=== PATIENT | female | born 1985 | race Caucasian/White ===

== ENCOUNTER 2018-02-26 17:12 | Inpatient (IN) ==
[2018-02-26] MEDS ORDERED: ONDANSETRON 4 MG/2 ML VIAL IV PRN (17:40)
[2018-02-26] MEDS ORDERED: BUTORPHANOL 2 MG/ML VIAL IV PRN (17:40)
[2018-02-26] MEDS ORDERED: MEPERIDINE 50 MG/1 ML VIAL IM PRN (17:40)
[2018-02-26] MEDS ORDERED: OXYTOCIN/LR 20 UNIT/1,000 ML BAG IV SCH (18:00)
[2018-02-26 18:22] LABS: Basophils % 0.2 % (0.0-0.8); Eosinophils % 0.1 % (0.00-10.9); Hematocrit 36.4 VOL% (35.7-47.0); Hemoglobin 11.8 GM/DL (12.0-16.0); Immature Granulocytes % 0.9 %; Lymphocytes # 1.7 10*3/uL (1.4-4.0); Lymphocytes % 7.4 % (21.3-54.2); Mean Corpuscular HGB Conc 32.4 GM/DL (32-36); Mean Corpuscular Hemoglobin 28 PG (27-34); Mean Corpuscular Volume 85.2 FL (87-102); Mean Platelet Volume 10.3 FL (9.6-12.0); Monocytes # 1.3 10*3/uL (0.11-0.8); Monocytes % 5.6 % (1.7-12.7); Neutrophils # 19.6 10*3/uL (1.4-7.4); Neutrophils % 85.8 % (38.7-73.9); Platelet Count 318 T/CUMM (130-400); Red Blood Count 4.27 MC/CUMM (3.8-5.5); Red Cell Distribution Width 14.1 % (9.3-17.3); White Blood Count 22.8 T/CUMM (4-12)
[2018-02-26 19:11] LABS: Lymphocytes 6 % (20-55); Platelet Estimate Normal; Polychromasia Slight; Segmented Neutrophils 86 % (50-85); Total Cells Counted 100
[2018-02-26] MEDS ORDERED: LIDOCAINE 1% 50 ML VIAL ONE (19:39)
[2018-02-26] MEDS ORDERED: miSOPROStol 200 MCG TABLET ONE (19:39)
[2018-02-26] MEDS ORDERED: METHYLERGONOVINE 0.2 MG/1 ML AMP ONE (19:41)
[2018-02-27] MEDS ORDERED: IBUPROFEN 800 MG TABLET PO PRN (00:09)
[2018-02-27] MEDS ORDERED: BISACODYL 10 MG SUPP RECTAL PRN (00:09)
[2018-02-27] MEDS ORDERED: MEASLES/MUMPS/RUBELLA VACCINE 0.5 ML VIAL SUBCUT ONE (00:09)
[2018-02-27] MEDS ORDERED: WITCH HAZEL PADS 100/JAR TOP PRN (00:09)
[2018-02-27] MEDS ORDERED: DIPH/TET/ACEL PERT BOOSTER VACCINE 0.5 ML VIAL IM ONE (00:09)
[2018-02-27] MEDS ORDERED: ACETAMINOPHEN 325 MG TABLET PO PRN (00:09)
[2018-02-27] MEDS ORDERED: oxyCODONE/ACETAMINOPHEN 5-325 MG TABLET PO PRN ×2 (00:09)
[2018-02-27] MEDS ORDERED: RHO(D) IMMUNE GLOBULIN 300 MCG SYRINGE IM ONE (00:09)
[2018-02-27] MEDS ORDERED: BENZOCAINE 20%/MENTHOL 0.5% SPRAY 56 GM CAN TOP PRN (00:09)
[2018-02-27] MEDS ORDERED: HYDROCORTISONE 2.5% RECTAL CREAM 30 GM TUBE TOP PRN (00:09)
[2018-02-27] MEDS ORDERED: LANOLIN 50% CREAM 0.3 OZ TUBE TOP PRN (00:09)
[2018-02-27] MEDS ORDERED: OXYTOCIN/LR 20 UNIT/1,000 ML BAG IV ONE (00:09)
[2018-02-27] MEDS: LACTATED RINGERS 1,000 ML IV SCH ×2 (00:59→03:08)
[2018-02-27 06:23] LABS: Basophils # 0.1 10*3/uL (0.0-0.2); Basophils % 0.2 % (0.0-0.8); Hematocrit 33.7 VOL% (35.7-47.0); Hemoglobin 11.1 GM/DL (12.0-16.0); Immature Granulocytes % 1.1 %; Immature Granulocytes Absolute 0.36 #; Lymphocytes % 6.4 % (21.3-54.2); Mean Corpuscular HGB Conc 32.9 GM/DL (32-36); Mean Corpuscular Hemoglobin 28 PG (27-34); Mean Corpuscular Volume 85.1 FL (87-102); Mean Platelet Volume 10.4 FL (9.6-12.0); Monocytes % 9.5 % (1.7-12.7); Neutrophils # 26.2 10*3/uL (1.4-7.4); Neutrophils % 82.8 % (38.7-73.9); Platelet Count 312 T/CUMM (130-400); Red Blood Count 3.96 MC/CUMM (3.8-5.5); Red Cell Distribution Width 14.5 % (9.3-17.3); White Blood Count 31.7 T/CUMM (4-12)
[2018-02-27 06:43] LABS: Band Neutrophils 30 % (0-10); Lymphocytes 7 % (20-55); Platelet Estimate Normal; Segmented Neutrophils 56 % (50-85); Total Cells Counted 100
[2018-02-27] MEDS: DOCUSATE SODIUM 100 MG CAPSULE PO SCH ×2 (09:23→20:59)
[2018-02-28] MEDS: DOCUSATE SODIUM 100 MG CAPSULE PO SCH ×2 (09:43→21:13)
[2018-03-01 07:41] VITALS: BP 105/69
[2018-03-01] MEDS: DOCUSATE SODIUM 100 MG CAPSULE PO SCH (08:32)
== END 2018-03-01 14:00 | disposition home or self-care (01) | DRG 807 ==
LOC: N.LDOUT 17:12 → N.LD 17:13
PROVIDERS: ADMIT Obstetrics & Gynecology; ATTEND Obstetrics & Gynecology